=== PATIENT | male | born 1955 | race Caucasian/White ===

== ENCOUNTER 2017-10-22 09:21 | Emergency (ER) | payer BC ==
--- NOTE | 2017-10-22 10:24 | ED ---
Lower Extremity - HPI Summary HPI Summary: Patient is a 61-year-old male presenting to the ED with chief complaint of right anterior knee pain worse to the lateral side with a small amount of erythema. No swelling noted. No history of gout. Has had a significant recent travel history with long periods [place] as well as any plane. Denies any calf pain. He states he awoke with the pain which was worse on Saturday and endorses stiffness, throughout the day the knee began to feel somewhat better. He states on arrival the knee feels more improved than earlier this morning. He takes diclofenac daily for generalized aches and pains. He denies any known injury. He denies any fevers, sweats, chills and is otherwise well. He has seen Dr. Damon in the past for some back pain. - History of Current Complaint Chief Complaint: EDExtremityLower Stated Complaint: KNEE PAIN RT Time Seen by Provider: 10/22/17 09:32 Hx Obtained From: Patient Mechanism Of Injury: Unknown Onset of Pain: Days Onset/Duration: Days Severity Initially: Moderate Severity Currently: Moderate Pain Intensity: 5 Pain Scale Used: 0-10 Numeric Timing: Intermittent Location: Is Discrete @ - right anterior knee pain with erythema to the lateral side measuring 2cm Associated Signs And Symptoms: Positive: Swelling Aggravating Factor(s): Standing, Ambulation Alleviating Factor(s): Rest Able to Bear Weight: Yes - Risk Factors Gout Risk Factors: Age Over 40, Male DVT Risk Factors: Negative Septic Arthritis Risk Factor: Negative - Allergies/Home Medications Allergies/Adverse Reactions: Allergies Allergy/AdvReac Type Severity Reaction Status Date / Time codeine Allergy Constipatio Verified 10/22/17 09:29 n Home Medications: Home Medications Aspirin EC TAB* [Ecotrin EC Low Dose 81 MG*] 81 mg PO DAILY 10/22/17 [History Confirmed 10/22/17] Atorvastatin* [Lipitor*] 20 mg PO DAILY 10/22/17 [History Confirmed 10/22/17] Diclofenac Sodium EC TAB* [Voltaren EC TAB*] 75 mg PO BID PRN 10/22/17 [History Confirmed 10/22/17] Fluticasone NASAL SPRAY 50MCG* [Flonase NASAL SPRAY 50MCG*] 2 spray BOTH NARES DAILY PRN 10/22/17 [History Confirmed 10/22/17] LevoCETirizine TAB (NF) [Xyzal TAB (NF)] 5 mg PO DAILY 10/22/17 [History Confirmed 10/22/17] Potassium Chlor TAB* [Klor Con ER TAB*] 10 meq PO DAILY 10/22/17 [History Confirmed 10/22/17] Valsartan/HCTZ 320/12.5(NF) [Diovan Hct 320/12.5(NF)] 1 tab PO DAILY 10/22/17 [ History Confirmed 10/22/17] PMH/Surg Hx/FS Hx/Imm Hx Previously Healthy: Yes - Immunization History Hx Pertussis Vaccination: No Immunizations Up to Date: Unable to Obtain/Confirm Infectious Disease History: No Infectious Disease History: Denies: Traveled Outside the [place] in Last 30 Days - Social History Occupation: Employed Full-time Lives: With Family Alcohol Use: Weekly Hx Substance Use: No Substance Use Type: Reports: None Hx Tobacco Use: Yes Smoking Status (MU): Former Smoker Review of Systems Constitutional: Negative Negative: Fever, Chills, Fatigue, Skin Diaphoresis Cardiovascular: Negative Respiratory: Negative Positive: no symptoms reported, see HPI Positive: Arthralgia - right anterior knee pain with erythema to the lateral side measuring 2cm Positive: Other - erythema Neurological: Negative All Other Systems Reviewed And Are Negative: Yes Physical Exam Triage Information Reviewed: Yes Vital Signs On Initial Exam: Initial Vitals Temp Pulse Resp BP Pulse Ox 98.2 F 124 20 151/96 95 10/22/17 09:27 10/22/17 09:27 10/22/17 09:27 10/22/17 09:27 10/22/17 09:27 Vital Signs Reviewed: Yes Appearance: Positive: Well-Appearing, No Pain Distress, Well-Nourished Skin: Positive: Warm, Skin Color Reflects Adequate Perfusion, Other - right anterior knee pain with erythema to the lateral side measuring 2cm Head/Face: Positive: Normal Head/Face Inspection Neck: Positive: Supple Respiratory/Lung Sounds: Positive: Breath Sounds Present Cardiovascular: Positive: Normal Musculoskeletal: Positive: Pain @ - full flexion of the knee Neurological: Positive: Speech Normal Psychiatric: Positive: Affect/Mood Appropriate AVPU Assessment: Alert Diagnostics - Vital Signs Vital Signs Temp Pulse Resp BP Pulse Ox 10/22/17 09:27 98.2 F 124 20 151/96 95 - Laboratory Lab Statement: Any lab studies that have been ordered have been reviewed, and results considered in the medical decision making process. Lower Extremity Course/Dx - Course Course Of Treatment: patient is evaluated for knee pain. There is a small erythematous 2 cm in diameter areas to the right lateral side of the knee with some mild stiffness. He is able to ambulate well. IMPRESSION: MINIMAL OSTEOARTHRITIS. NO ACUTE OSSEOUS INJURY. IF SYMPTOMS PERSIST, RECOMMEND REPEAT. IMAGING. Discussed changing medication with patient. Advised may be Mobic is no - Diagnoses Differential Diagnosis/HQI/PQRI: Positive: Fracture (Closed), Gout, Osteomyelitis, Sprain, Strain, Tendonitis Provider Diagnoses: Osteomyelitis Discharge - Sign-Out/Discharge Documenting (check all that apply): Discharge/Admit/Transfer - Discharge Plan Condition: Stable Disposition: HOME Prescriptions: Meloxicam [Mobic] 7.5 mg PO BID #30 tablet predniSONE TAB* [Deltasone TAB*] 50 mg PO DAILY #5 tab MDD 1 Patient Education Materials: Osteoarthritis (ED) Referrals: Ambar Damon MD [Medical Doctor] - Anthony Mcdaniel MD [Primary Care Provider] - Additional Instructions: Please follow-up with Dr. Damon as needed If he develop any worsening redness, warmth, swelling or worsening pain to the area despite the medications, return to the ED immediately Mobic twice daily as for pain and inflammation If this medication improves your symptoms more than the diclofenac, you may talk to your doctor about switching this to be your daily medication Prednisone 50 mg once daily 5 days. Take this in the morning as it is a mild stimulant - Billing Disposition and Condition Condition: STABLE Disposition: HOME
--- NOTE | 2017-10-22 10:26 | RAD ---
HISTORY: Right knee pain COMPARISONS: None VIEWS: 4, Frontal, lateral, axial, and oblique views of the right knee FINDINGS: BONE DENSITY: Normal. BONES: There is no displaced fracture. There is a superior patellar enthesophyte. JOINTS: There is mild patellofemoral and lateral compartment osteophyte formation. There is no suprapatellar joint effusion or lipohemarthrosis. ALIGNMENT: There is no dislocation. SOFT TISSUES: Unremarkable. OTHER FINDINGS: None. IMPRESSION: MINIMAL OSTEOARTHRITIS. NO ACUTE OSSEOUS INJURY. IF SYMPTOMS PERSIST, RECOMMEND REPEAT IMAGING.
[2017-10-22 10:58] VITALS: BP 130/86
== END 2017-10-22 10:55 | disposition home or self-care (01) ==
LOC: ED 09:21
DX: M86.9 Osteomyelitis, unspecified (principal); M25.561 Pain in right knee; Z87.891 Personal history of nicotine dependence
CPT/HCPCS: 99282

== ENCOUNTER 2017-11-24 11:19 | Emergency (ER) | payer BC ==
[2017-11-24 12:09] LABS: ABS Basophils 0 10^3/ul (0-0.2); ABS Eosinophils 0 10^3/ul (0-0.6); ABS Lymphocytes 0.9 10^3/ul (1.0-4.8); ABS Monocytes 1.2 10^3/ul (0-0.8); ABS Neutrophils 6.3 10^3/ul (1.5-7.7); ABS Nucleated RBC 0 10^3/ul; Eosinophil % 0.2 % (0-6); Hematocrit 40 % (42-52); Hemoglobin 14.4 g/dl (14.0-18.0); Lymphocyte % 11.2 % (25-47); Mean Corpuscular HGB Conc 36 g/dl (31-36); Mean Corpuscular Hemoglobin 33 pg (27-31); Mean Corpuscular Volume 94 fL (80-94); Mean Platelet Volume 7.8 um3 (7.4-10.4); Nucleated Red Blood Cells % 0.1; Platelet Count 180 10^3/ul (150-450); Red Blood Count 4.31 10^6/ul (4.00-5.40); Red Cell Distribution Width 13 % (10.5-15); White Blood Count 8.4 10^3/ul (3.5-10.8)
[2017-11-24 12:19] LABS: EGFR Non-African American 56.3 (>60); Uric Acid 9.1 mg/dL (4.4-7.6)
--- NOTE | 2017-11-24 13:08 | RAD ---
INDICATION: Pain and swelling. COMPARISON: None TECHNIQUE: Duplex interrogation of the Lowerextremity was performed. FINDINGS: Deep veins: The common femoral, great saphenous, profunda femoris, proximal, mid, and distal deep femoral, popliteal, posterior tibial, and peroneal veins are patent. There is normal compressibility, augmentation, and phasic flow. Superficial veins: There are no findings of superficial thrombophlebitis. Popliteal fossa:There is no evidence of a popliteal cyst. Soft tissues:There are no soft tissue abnormalities. IMPRESSION: Normal examination. No evidence of deep venous thrombosis
--- NOTE | 2017-11-24 13:24 | RAD ---
INDICATION: Atraumatic right ankle pain COMPARISON: None TECHNIQUE: AP, lateral, and oblique views were obtained. FINDINGS: There is no acute bony change. The ankle mortise is intact. There are prominent Achilles and plantar calcaneal spurs. There is mild soft tissue swelling over the dorsum of the midfoot. IMPRESSION: HEEL SPURS. SOFT TISSUE SWELLING. NO ACUTE BONY FINDINGS.
--- NOTE | 2017-11-24 13:25 | RAD ---
INDICATION: Right foot pain COMPARISON: None TECHNIQUE: AP, lateral, and oblique views were obtained. FINDINGS: There is no acute fracture. There is minor osteoarthritis of the midfoot. There is an old avulsion fracture or ossicle about the tarsal navicular. There are heel spurs. There is soft tissue swelling of the dorsum of the midfoot in the medial aspect of the midfoot. IMPRESSION: NO ACUTE BONY FINDINGS. HEEL SPURS. SOFT TISSUE SWELLING MIDFOOT
--- NOTE | 2017-11-24 13:37 | ED ---
Mert Martell Elizabeth, scribed for Sneha Cooper MD on 11/24/17 at 1151 . Lower Extremity - HPI Summary HPI Summary: This patient is a 61 year old M presenting to [facility] with a chief complaint of right foot pain, erythema, and swelling since 3 days ago. The patient notes he spent long periods standing 3 days ago, 2 days ago he noticed cramping in his right foot, and last night the swelling and pain worsened. The patient rates the pain 9/10 in severity. Symptoms aggravated by movement and bearing weight. Symptoms alleviated by nothing. Patient reports difficulty walking without help. Patient denies calf pain or gout. The patient notes that he has been icing and elevating his right foot and taking Tylenol, but his symptoms have not alleviated. - History of Current Complaint Chief Complaint: EDExtremityLower Stated Complaint: RT FOOT INJURY Time Seen by Provider: 11/24/17 11:34 Hx Obtained From: Patient Onset of Pain: Days - 3 days Onset/Duration: Days - 3 days Severity Initially: Mild Severity Currently: Moderate Pain Intensity: 9 Pain Scale Used: 0-10 Numeric Timing: Constant Location: Is Discrete @ - right foot Associated Signs And Symptoms: Positive: Swelling, Redness, Other - right foot pain Aggravating Factor(s): Standing, Ambulation, Movement, Weight Bearing Alleviating Factor(s): Nothing - Allergies/Home Medications Allergies/Adverse Reactions: Allergies Allergy/AdvReac Type Severity Reaction Status Date / Time codeine Allergy Constipatio Verified 11/24/17 11:23 n Home Medications: Home Medications Magnesium Oxide [Magnesium] 1 tab PO DAILY 11/24/17 [History Confirmed 11/24/17] amLODIPine TAB* [Norvasc 5 mg TAB*] 5 mg PO DAILY 11/24/17 [History Confirmed ] PMH/Surg Hx/FS Hx/Imm Hx Respiratory History: Denies: Hx Chronic Obstructive Pulmonary Disease (COPD) Opthamlomology History: Denies: Hx Legally Blind EENT History: Denies: Hx Deafness Infectious Disease History: No Infectious Disease History: Denies: Traveled Outside the [place] in Last 30 Days - Family History Known Family History: Positive: None - patient denies relevant FHx - Social History Alcohol Use: Weekly Hx Substance Use: No Substance Use Type: Reports: None Hx Tobacco Use: Yes Smoking Status (MU): Former Smoker Review of Systems Negative: Epistaxis Negative: Vomiting Positive: Decreased ROM - in right foot/ankle, Edema - in right foot Positive: Other - erythema at top of right foot All Other Systems Reviewed And Are Negative: Yes Physical Exam - Summary Physical Exam Summary: Appearance: Well-appearing, Well-nourished Skin: Warm Eyes: Normal ENT: Normal Neck: Supple, nontender Respiratory: Clear to auscultation Cardiovascular: Regular rate, regular rhythm. Normal S1, S2. Abdomen: Soft, nontender Musculoskeletal: Tenderness to palpation over the right fourth flexor digitorum tendon, ROM of right foot restricted due to pain, right dorsum of foot swelling Neurological: Normal, A&Ox3 Psychiatric: Normal General: No acute distress Triage Information Reviewed: Yes Vital Signs On Initial Exam: Initial Vitals Temp Pulse Resp BP Pulse Ox 99.8 F 126 18 151/95 95 11/24/17 11:21 11/24/17 11:21 11/24/17 11:21 11/24/17 11:21 11/24/17 11:21 Vital Signs Reviewed: Yes Diagnostics - Vital Signs Vital Signs Temp Pulse Resp BP Pulse Ox 11/24/17 11:21 99.8 F 126 18 151/95 95 - Laboratory Lab Results: Lab Results 11/24/17 11/24/17 Range/Units 11:53 11:53 WBC 8.4 (3.5-10.8) 10^3/ul RBC 4.31 (4.00-5.40) 10^6/ul Hgb 14.4 (14.0-18.0) g/dl Hct 40 L (42-52) % MCV 94 (80-94) fL MCH 33 H (27-31) pg MCHC 36 (31-36) g/dl RDW 13 (10.5-15) % Plt Count 180 (150-450) 10^3/ul MPV 7.8 (7.4-10.4) um3 Neut % (Auto) 74.5 (38-83) % Lymph % (Auto) 11.2 L (25-47) % Darke % (Auto) 13.8 H (0-7) % Eos % (Auto) 0.2 (0-6) % Baso % (Auto) 0.3 (0-2) % Absolute Neuts (auto) 6.3 (1.5-7.7) 10^3/ul Absolute Lymphs (auto) 0.9 L (1.0-4.8) 10^3/ul Absolute Monos (auto) 1.2 H (0-0.8) 10^3/ul Absolute Eos (auto) 0 (0-0.6) 10^3/ul Absolute Basos (auto) 0 (0-0.2) 10^3/ul Absolute Nucleated RBC 0 10^3/ul Nucleated RBC % 0.1 Sodium 135 (135-145) mmol/L Potassium 3.7 (3.5-5.0) mmol/L Chloride 98 L (101-111) mmol/L Carbon Dioxide 26 (22-32) mmol/L Anion Gap 11 (2-11) mmol/L BUN 16 (6-24) mg/dL Creatinine 1.30 H (0.67-1.17) mg/dL Est GFR ( Amer) 68.1 (>60) Est GFR (Non-Af Amer) 56.3 (>60) BUN/Creatinine Ratio 12.3 (8-20) Glucose 135 H (70-100) mg/dL Uric Acid 9.1 H (4.4-7.6) mg/dL Calcium 10.3 (8.6-10.3) mg/dL Total Bilirubin 1.80 H (0.2-1.0) mg/dL AST 20 (13-39) U/L ALT 20 (7-52) U/L Alkaline Phosphatase 57 (34-104) U/L Total Protein 8.4 (6.4-8.9) g/dL Albumin 4.4 (3.2-5.2) g/dL Globulin 4.0 (2-4) g/dL Albumin/Globulin Ratio 1.1 (1-3) Result Diagrams: 11/24/17 11:53 11/24/17 11:53 Lab Statement: Any lab studies that have been ordered have been reviewed, and results considered in the medical decision making process. - Additional Comments Diagnostic Additional Comments: VL Lower Ext Veins Right Interpreted by radiologist. IMPRESSION: Normal examination. No evidence of deep venous thrombosis Dr. Cooper has reviewed this report. Re-Evaluation - Re-Evaluation 1st re-eval Re-Evaluation Time: 13:15 Change: Improved Comment: Discussed imaging results with patient. Lower Extremity Course/Dx - Course Assessment/Plan: RLE pain- LE doppler neg for DVT or fluid collection, XR of right foot and ankle neg for fx,. URIC ACID is 9.1- pt has atypical gout, Prednisone 20mg PO qd x 5 days prescribed, Indomethacin 50mg TID for acute attack for future, f/u with nephrology - evaluate for overexcretor vs undersecretor of uric acid - Diagnoses Provider Diagnoses: Gout Discharge - Sign-Out/Discharge Documenting (check all that apply): Discharge/Admit/Transfer - Discharge Plan Condition: Stable Disposition: HOME Discharge Disposition Comment: discharge home Prescriptions: predniSONE TAB* [Deltasone 10 MG TAB*] 10 mg PO DAILY 5 Days #5 tab Patient Education Materials: Gout (ED) Referrals: Anthony Mcdaniel MD [Primary Care Provider] - Additional Instructions: Return to the emergency department with any new or worsening symptoms. - Billing Disposition and Condition Condition: STABLE Disposition: Home The documentation as recorded by the Mert izquierdo Elizabeth accurately reflects the service I personally performed and the decisions made by , Sneha Cooper MD.
[2017-11-24 14:07] VITALS: BP 144/89
== END 2017-11-24 14:06 | disposition home or self-care (01) ==
LOC: ED 11:19
DX: M10.9 Gout, unspecified (principal); M77.31 Calcaneal spur, right foot; Z87.891 Personal history of nicotine dependence; Z88.5 Allergy status to narcotic agent
CPT/HCPCS: 36415; 80053; 84550; 85025; 99282

== ENCOUNTER 2018-01-08 17:58 | Emergency (ER) | payer BC ==
--- OUTSIDE RECORDS SUMMARY | 2018-01-08 18:03 | XMS REPORT ---
:1955 External Reference #:[id number] Author Organization Bright Elizabeth M.D., [facility] Address [address] [place] [address] Phone [phone] Care Team Providers Name Role Phone Diana HALL, Niko Primary Care Physician Unavailable Payers Type Date Identification Numbers Payment Provider Subscriber Health Maintenance Policy Number: BC/BS [place] Ppo Daniel Kate Wavii Organization (HMO) [id number] PayID: [id number] [address] [address] [place] [address] Problems Description No Information Family History Date Family Member(s) Problem(s) Comments Father Cancer Prostate Father Heart Disease Mother Cataract Social History Type Date Description Comments ETOH Use Occasionally consumes alcohol Smoking Patient is a former smoker Allergies, Adverse Reactions, Alerts Date Description Reaction Status Severity Comments 01/02/2018 NKDA active Medications Medication Date Status Form Strength Qnty SIG Indications Ordering Provider Allopurinol / Active Tablets 300mg Stevanokeeley 0000 MD, Radomir Atorvastatin / Active Tablets 20mg Stevanovic Calcium 0000 MD, Radomir Fluticasone / Active Suspension 50mcg/Act Stevanovic Propionate 0000 MD, Radomir Potassium Chloride / Active Tablets ER 10Meq Stevanovic ER 0000 MD, Radomir Sildenafil Citrate / Active Tablets 100mg Unknown 0000 Valsartan-Hydrochl / Active Tablets 320-12.5mg Stevanovic orothiazide 0000 MD, Radomir Amlodipine / Active Tablets 5mg Stevanovic Besylate 0000 MD, Radomir Levocetirizine / Active Tablets 5mg Stevanovic Dihydrochloride 0000 MD, Radomir Vital Signs Date Vital Result Comment 01/02/2018 Intraocular Pressure Right Eye 19 mmHg Intraocular Pressure Left Eye 18 mmHg Results Description No Information Procedures Date CPT Code Description Status 01/02/2018 06476 Refraction Completed 01/02/2018 74987 Eye Exam New Comprehensive Completed 12/27/2008 58462 Eye Exam New Comprehensive Completed 01/29/2008 27130 Ophthalmoscopy Subsequent Completed 01/29/2008 33559 Refraction Completed 01/29/2008 93401 Eye Exam Est Comprehensive Completed 08/16/2006 70487 Ophthalmoscopy Initial Completed 08/16/2006 60849 Refraction Completed 08/16/2006 44182 Eye Exam New Comprehensive Completed Plan of Care 01/02/2018 - Bright Elizabeth M.D.H25.093 Other age-related incipient cataract, bilateralFollow up:1 yr
--- NOTE | 2018-01-08 18:11 | UC ---
Epistaxis Nasal HPI - HPI Summary HPI Summary: This patient is a 62 year old M presenting to [facility] care with a chief complaint of sinus pressure that began a week and a half ago. The patient rates the pain 2/10 in severity. Symptoms aggravated by nothing. Symptoms alleviated by nothing. Patient reports fever (max 101 F), SOB, yellow nasal discharge, neck pain, and back pain. Patient denies dysuria, cough, chest congestion, and sore throat. Patient reports that his symptoms feel similar to his history of sinus infections. - History of Current Complaint Stated Complaint: SINUS COMPLAINT Time Seen by Provider: 01/08/18 18:02 Hx Obtained From: Patient Onset/Duration: Sudden Onset, Lasting Weeks, Still Present Timing: Constant Severity Initially: Mild Severity Currently: Mild Pain Intensity: 2 Pain Scale Used: 0-10 Numeric Aggravating Factor(s): Nothing Alleviating Factor(s): Nothing Associated Signs And Symptoms: Positive: Sinus Pain, Nasal Discharge - Allergies/Home Medications Allergies/Adverse Reactions: Allergies Allergy/AdvReac Type Severity Reaction Status Date / Time codeine Allergy Constipatio Verified 01/08/18 18:12 n Home Medications: Home Medications Allopurinol TAB* [Zyloprim 100 MG TAB*] 1 tab PO DAILY 01/08/18 [History Confirmed 01/08/18] PMH/Surg Hx/FS Hx/Imm Hx - Additional Past Medical History Additional PMH: ENT PMHx Sinus infections Previously Healthy: No Respiratory History: Other Other Respiratory History: Negative COPD - Family History Known Family History: Positive: None - patient denies relevant FHx - Social History Occupation: Employed Full-time Lives: With Family Alcohol Use: Weekly Substance Use Type: None Smoking Status (MU): Former Smoker Review of Systems Constitutional: Fever ENT: Nasal Discharge, Sinus Pain/Tenderness, Other - Negative sore throat Respiratory: Shortness Of Breath, Other - Negative cough and chest congestion Genitourinary: Other - Negative dysuria Musculoskeletal: Other: - Positive neck pain and back pain All Other Systems Reviewed And Are Negative: Yes Physical Exam - Summary Physical Exam Summary: General: well-appearing, no pain distress Skin: warm, color reflects adequate perfusion, dry Head: normal Eyes: EOMI, LIU ENT: normal Neck: supple, nontender Respiratory: CTA, breath sounds present Cardiovascular: tachycardic Abdomen: soft, nontender Bowel: present Musculoskeletal: normal, strength/ROM intact Neurological: sensory/motor intact, A&O x3 Psychological: affect/mood appropriate Triage Information Reviewed: Yes Vital Signs Reviewed: Yes Diagnostics - EKG Cardiac Rate: Tachycardia - 123 BPM Cardiac Rhythm: Sinus: Normal - Taken at 1821. Ectopy: None ST Segment: Normal Re-Evaluation - Re-Evaluation First Eval Re-Evaluation Time: 18:50 Change: Improved Comment: Discussed plan of care and results with pt Epistaxis Nasal Course/Dx - Course Course Of Treatment: DISCUSSED URINE RESULTS. PATIENT DOES NOT HAVE JAUNDICE APPEARANCE. DISCUSSED THE FEVER, LOW BLOOD PRESSURE AND TACHYCARDIA BEING SIGNS OF SEPSIS. THE PATIENT DOES NOT APPEAR SEPTIC AT THIS TIME. DISCUSSED GETTING LAB WORK TO INCLUDE CBC AND CMP (WITH TOTAL BILIRUBIN). THE PATIENT DECLINED AT THIS TIME BUT, WILL GET REEVAL IF THERE IS ANY SIGN OF JAUNDICE OR HE FEELS MORE ILL. ALSO DISCUSSED THE CORRECT DOSING OF ACETAMINOPHEN. I RECOMMENDED EVALUATION IN THE EMERGENCY DEPARTMENT WITH ANY WORSENING OF HIS CONDITION. - Differential Dx/Diagnosis Provider Diagnoses: SINUSITIS. FEVER. TACHYCARDIA Discharge - Sign-Out/Discharge Documenting (check all that apply): Patient Departure - Discharge Plan Condition: Stable Disposition: HOME Prescriptions: Moxifloxacin TAB(NF) [Avelox TAB (NF)] 400 mg PO DAILY #14 tab Patient Education Materials: Sinusitis (ED), Fever in Adults (ED), Tachycardia (ED) Referrals: Anthony Mcdaniel MD [Primary Care Provider] - Additional Instructions: FOLLOW UP WITH YOUR DOCTOR. MIGUEL TOMORROW TO ARRANGE FOLLOW UP. YOU HAD SOME BILIRUBIN IN YOUR URINE. GET THIS RECHECKED WITH YOUR DOCTOR. GET RECHECKED FOR ANY WORSENING OF YOUR CONDITION; PAIN, FEVER, YOU FEEL ILL OR QUESTIONS OR CONCERNS. - Billing Disposition and Condition Condition: STABLE Disposition: Home Attestation Statement Scribe Attestation: This is felecia Bradford documenting for attending Shahbaz Durbin MD. User Type: Provider with Scribe Provider Attestation: The documentation recorded by the scribe accurately reflects the service I personally performed and the decisions made by me.
[2018-01-08] MEDS ORDERED: Acetaminophen TAB* 325 MG PO ONE (18:16)
[2018-01-08 18:46] VITALS: BP 91/66
== END 2018-01-08 19:05 | disposition home or self-care (01) ==
LOC: UCEAST 17:58
DX: J32.9 Chronic sinusitis, unspecified (principal); R50.9 Fever, unspecified; R00.0 Tachycardia, unspecified; Z88.5 Allergy status to narcotic agent; Z87.891 Personal history of nicotine dependence
CPT/HCPCS: 81003; 93005; 99212; A9270-GY; G0463

== ENCOUNTER 2018-02-02 10:04 | Emergency (ER) | payer BC ==
[2018-02-02 11:11] LABS: Hematocrit 36 % (42-52); Hemoglobin 12.3 g/dl (14.0-18.0); Mean Corpuscular HGB Conc 34 g/dl (31-36); Mean Corpuscular Hemoglobin 31 pg (27-31); Mean Corpuscular Volume 91 fL (80-94); Mean Platelet Volume 7.1 um3 (7.4-10.4); Platelet Count 268 10^3/ul (150-450); Red Blood Count 3.99 10^6/ul (4.00-5.40); Red Cell Distribution Width 14 % (10.5-15); White Blood Count 14.3 10^3/ul (3.5-10.8)
--- NOTE | 2018-02-02 11:11 | ED ---
Skin Complaint - HPI Summary HPI Summary: A 62 y/o male presents to ED c/o diffuse body erythema and edema. Additionally c /o diffuse rash. Currently, the patient is in no pain distress, however his right arm feels tight. He stated that his edema and erythema feels like a "sun burn". In the ED room, the patient has a pulse of 86 BPM, O2 saturation of 97% and blood pressure of 119/67. According to the patient, he initially started out with diffuse itching approximately 2 weeks ago before noticing the apparent swelling diffusely throughout his body. He noted that he is in no pain, but the erythema and edema has not subsided. He feels swelling in his face, ankles, legs , arms, abdomen and back. Denies any SOB, sore throat, abdominal pain and hematuria. He even cut off several of his medications to alleviate the symptoms , as he thought they were side effects, but nothing has helped. He noted that since last time he was in the [facility] ED, he has gained substantial weight (greater than 10 lbs). He stated that he does feel the itching throughout his body, but it is not intense and it easy not to scratch, however there was a night where it kept him up all night. Patient is currently on several medications. - History of Current Complaint Chief Complaint: EDRashSkinAbscess Stated Complaint: SWELLING Hx Obtained From: Patient, Family/Analog Design Engineer Onset/Duration: Started Weeks Ago, Still Present Skin Exposure Onset/Duration: Weeks Ago Timing: Constant Current Severity: None Pain Intensity: 0 Pain Scale Used: 0-10 Numeric Skin Location: Diffuse Character: Swelling, Redness Aggravating Symptom(s): Nothing Alleviating Symptom(s): Nothing Associated Signs & Symptoms: Rash - Allergy/Home Medications Allergies/Adverse Reactions: Allergies Allergy/AdvReac Type Severity Reaction Status Date / Time codeine Allergy Constipatio Verified 01/08/18 18:12 n PMH/Surg Hx/FS Hx/Imm Hx Endocrine/Hematology History: Denies: Hx Diabetes Cardiovascular History: Reports: Hx Hypertension Respiratory History: Denies: Hx Asthma, Hx Chronic Obstructive Pulmonary Disease (COPD) Sensory History: Denies: Hx Legally Blind, Hx Deafness Opthamlomology History: Denies: Hx Legally Blind - Surgical History Surgery Procedure, Year, and Place: As per patient, no prior surgeries noted. Infectious Disease History: No Infectious Disease History: Denies: Traveled Outside the [place] in Last 30 Days - Family History Known Family History: Positive: Hypertension, Other - Father had triple bypass and pacemaker. Negative: Diabetes - Social History Alcohol Use: Weekly Hx Substance Use: No Substance Use Type: Reports: None Hx Tobacco Use: Yes Smoking Status (MU): Former Smoker Review of Systems Negative: Fever Negative: Sore Throat Negative: Shortness Of Breath Negative: Abdominal Pain Negative: hematuria Positive: Edema Skin: Other - POSITIVE: Erythema Positive: Rash All Other Systems Reviewed And Are Negative: Yes Physical Exam - Summary Physical Exam Summary: General: well-appearing, no pain distress Skin: Diffuse erythematous blanching rash in arms, legs, chest, abdomen and face , Head: normal Eyes: EOMI, LIU ENT: normal, oral pharynx is open Neck: supple, nontender Respiratory: CTA, breath sounds present, lungs are clear Cardiovascular: RRR Abdomen: soft, nontender Bowel: present Musculoskeletal: strength/ROM intact, diffuse edema in legs and arm Neurological: sensory/motor intact, A&O x3 Psychological: affect/mood appropriate Triage Information Reviewed: Yes Vital Signs On Initial Exam: Initial Vitals Temp Pulse Resp BP Pulse Ox 98.9 F 86 18 115/75 98 02/02/18 10:07 02/02/18 10:07 02/02/18 10:07 02/02/18 10:07 02/02/18 10:07 Vital Signs Reviewed: Yes Diagnostics - Vital Signs Vital Signs Temp Pulse Resp BP Pulse Ox 02/02/18 10:26 85 98 02/02/18 10:24 87 119/67 96 02/02/18 10:07 98.9 F 86 18 115/75 98 - Laboratory Result Diagrams: 02/02/18 10:52 02/02/18 10:52 Lab Statement: Any lab studies that have been ordered have been reviewed, and results considered in the medical decision making process. - Radiology CXR Radiology Interpretation Completed By: Radiologist - In the correct clinical setting chest x-ray findings could be compatible with mild cardiogenic vascular congestion. ED physician reviewed this radiology report. - EKG 1155 Cardiac Rate: NL - 82 BPM EKG Rhythm: Sinus Rhythm Ectopy: None EKG Interpretation: Flipped T's in inferior leads. - Additional Comments Diagnostic Additional Comments: TRANSTHORACIC ECHOCARDIOGRAM: Conclusions: The left ventricular chamber size is normal. Mild concentric left ventricular hypertrophy is observed. There is normal left ventricular systolic function. The estimated ejection fraction is 55-60%. Global left ventricular wall motion and contractility are within normal limits. The left atrial chamber size is normal. The right ventricular cavity size is normal. The right ventricular global systolic function is low normal. No significant valvular abnormalities noted No pulmonary hypertension is noted. Definity was used to optimize study. ED PHYSICIAN REVIEWED THIS RADIOLOGY REPORT. Course/Dx - Course Course Of Treatment: Medications reviewed. Allergies noted. HOSPITALIST, DR SORIANO, AND DERMATOLGY, DR RAMIREZ, CONSULTED. BOTH SAW THE PATIENT IN THE ED. THE PLAN IS STOP THE ALLOPURINOL, TREAT WITH PREDNISONE TAPER, RECHECK LABS ON 02/07/18, F/U WITH PMD AND RETURN TO THE ED IF WORSE. THIS WAS ALL DISCUSSED WITH THE PATIENT AND HIS . - Diagnoses Provider Diagnoses: DRESS syndrome - Physician Notifications Discussed Care Of Patient With: Dasha Soriano Time Discussed With Above Provider: 10:58 Instructed by Provider To: Other - Dr. Soriano will consult with patient. Consult at [address] Stuart Franco who recommends ECHO. Consult with Dr. Soriano at 1254 who will consult with patient again. Discharge - Sign-Out/Discharge Documenting (check all that apply): Patient Departure - DISCHARGE - Discharge Plan Condition: Stable Disposition: HOME Prescriptions: predniSONE TAB* [Deltasone 10 MG TAB*] 10 mg PO SEE INSTRUCTIONS #40 tab predniSONE TAB* [Deltasone 10 MG TAB*] 10 mg PO DAILY #40 tab Meds/Orders/Equipment: CBC Auto Diff Time Frame: 02/07/18, Location: None Selected Comprehensive Metabolic Panel [CHEM] Time Frame: 02/07/18, Location: None Selected C Reactive Protein [CHEM] Time Frame: 02/07/18, Location: None Selected Patient Education Materials: Acute Rash (ED), General Allergic Reaction (ED) Referrals: Kay Ramirez [Medical Doctor] - Anthony Mcdaniel MD [Primary Care Provider] - Additional Instructions: FOLLOW UP WITH YOUR PRIMARY CARE DOCTOR AND DERMATOLOGY FOR YOUR DRESS SYNDROME. GET RECHECKED FOR ANY WORSENING OF YOUR CONDITION OR QUESTIONS OR CONCERNS. - Billing Disposition and Condition Condition: STABLE Disposition: Home - Attestation Statements Document Initiated by Scribe: Yes Documenting Scribe: Thomas Hill Provider For Whom Scribe is Documenting (Include Credential): Shahbaz Durbin MD Scribe Attestation: I, Thomas Hill, scribed for Shahbaz Durbin MD on 02/02/18 at 1815. Scribe Documentation Reviewed: Yes Provider Attestation: The documentation as recorded by the [email or web address] accurately reflects the service I personally performed and the decisions made by me, Shahbaz Durbin MD
[2018-02-02 11:19] LABS: INR 0.96 (0.77-1.02)
[2018-02-02 11:28] LABS: EGFR Non-African American 60.4 (>60); Uric Acid 4.9 mg/dL (4.4-7.6)
[2018-02-02 11:37] LABS: ABS Basophils 0 10^3/ul (0-0.2); ABS Eosinophils 2.9 10^3/ul (0-0.6); ABS Lymphocytes 0.9 10^3/ul (1.0-4.8); ABS Monocytes 1.6 10^3/ul (0-0.8); ABS Neutrophils 8.8 10^3/ul (1.5-7.7); ABS Nucleated RBC 0 10^3/ul; Eosinophil % 20.1 % (0-6); Lymphocyte % 6.4 % (25-47); Nucleated Red Blood Cells % 0.1
[2018-02-02] MEDS ORDERED: Perflutren Lipid Microsphere* 3 ML VIAL ONE (11:46)
--- NOTE | 2018-02-02 12:27 | RAD ---
INDICATION: Edema COMPARISON: None. TECHNIQUE: Single AP portable view of the chest was obtained. FINDINGS: Image quality is compromised due to the relative inferiority of a portable chest x-ray. The heart appears mildly enlarged. The pulmonary vasculature is mildly engorged and indistinct. Lungs are otherwise grossly clear. Visualized bones are normal for the patient's age. IMPRESSION: In the correct clinical setting chest x-ray findings could be compatible with mild cardiogenic vascular congestion.
[2018-02-02 12:50] LABS: Urine Appearance Clear; Urine Blood Negative (Negative); Urine Color Straw; Urine Ketones Negative (Negative); Urine Protein Negative (Negative); Urine Specific Gravity 1.005 (1.010-1.030); Urine Urobilinogen Negative (Negative)
--- NOTE | 2018-02-02 12:56 | ECHO ---
Patient: RJ BALLESTEROS [facility] Rec#: [id number] : 1955 Date: 02/02/2018 Age: 62y Height: 172.7 cm / 68.0 in Weight: 100 kg / 220.4 lbs Sex: M BSA: 2.13 Room#: -16 Admit Date#: 02/02/2018 Type: Inpatient Referring: Shahbaz Durbin MD Reading: Maxx Franco DO Summer Camp Counselor: Arti Fox RDCS CC: Anthony Mcdaniel MD Transthoracic Echocardiogram Indication: Edema BP: 115/72 HR: 89 Rhythm: NSR Findings History: Former smoker Technical Comments: The study is technically limited due to patient body habitus. Completed at 1230. Left Ventricle: The left ventricular chamber size is normal. Mild concentric left ventricular hypertrophy is observed. Global left ventricular wall motion and contractility are within normal limits. There is normal left ventricular systolic function. The estimated ejection fraction is 55-60%. Normal left ventricular diastolic filling is observed. Left Atrium: The left atrial chamber size is normal. Right Ventricle: The right ventricular cavity size is normal. The right ventricular global systolic function is low normal. Right Atrium: The right atrium is mildly dilated. Aortic Valve: The aortic valve is trileaflet. The aortic valve leaflets are mildly thickened. There is no evidence of aortic regurgitation. There is no evidence of aortic stenosis. Mitral Valve: The mitral valve leaflets are mildly thickened. There is a trace of mitral regurgitation. There is no evidence of mitral stenosis. Tricuspid Valve: The tricuspid valve leaflets are normal. There is trace tricuspid regurgitation. No pulmonary hypertension is noted. There is no tricuspid stenosis. Pulmonic Valve: The pulmonic valve appears normal. There is a trace pulmonic regurgitation. There is no pulmonic stenosis. Pericardium: There is no significant pericardial effusion. Aorta: There is no dilatation of the ascending aorta. There is no dilatation of the aortic arch. The aortic root is normal in size. Pulmonary Artery: The main pulmonary artery is not well visualized. Venous: The inferior vena cava appears normal in size. There is a greater than 50% respiratory change in the inferior vena cava dimension. Contrast: Definity was used to optimize study. 2 mL of diluted Definity were utilized. Intravenous contrast was used to enhance endocardial border definition. Conclusions The left ventricular chamber size is normal. Mild concentric left ventricular hypertrophy is observed. There is normal left ventricular systolic function. The estimated ejection fraction is 55-60%. Global left ventricular wall motion and contractility are within normal limits. The left atrial chamber size is normal. The right ventricular cavity size is normal. The right ventricular global systolic function is low normal. No significant valvular abnormalities noted No pulmonary hypertension is noted. Definity was used to optimize study. None prior for comparison at time of interpretation Measurements Name Value Normal Range RVIDd (AP) 2D 3.5 cm (0.9 - 2.6) RAd ISD 4CH 5 cm (3.4 - 4.9) RA (A4C)W 5 cm (2.9 - 4.6) IVSd (2D) 1.1 cm (0.6 - 1) LVPWd (2D) 1.1 cm (0.6 - 1) LVIDd (2D) 4.7 cm (3.6 - 5.4) LVIDs (2D) 3.2 cm - LV FS (2D) 31 % (25 - 45) Aortic Annulus 2.2 cm (1.4 - 2.6) Ao root diameter (2D) 3.3 cm (2.1 - 3.5) Ascending Ao 3.1 cm (2.1 - 3.4) Aortic arch 2.3 cm (1.8 - 3.4) LA dimension (AP) 2D 3.3 cm (2.3 - 3.8) LAd ISD 4CH 5.4 cm (2.9 - 5.3) LA ISD 4CH W 4.6 cm (2.5 - 4.5) Name Value Normal Range LA ESV BP (A/L) index 16 ml/m2 - Name Value Normal Range MV E-wave Vmax 0.7 m/sec - MV deceleration time 208 msec - MV A-wave Vmax 0.6 m/sec - MV E:A ratio 1.2 ratio - LV septal e' Vmax 0.08 m/sec - LV lateral e' Vmax 0.08 m/sec - LV E:e' septal ratio 8.75 ratio - LV E:e' lateral ratio 8.75 ratio - Name Value Normal Range AV Vmax 1.5 m/sec - AV VTI 24.3 cm - AV peak gradient 9 mmHg - AV mean gradient 5 mmHg - LVOT Vmax 1.1 m/sec - LVOT VTI 17.5 cm - LVOT peak gradient 5 mmHg - LVOT mean gradient 3 mmHg - KENNEDY Vmax 1 m/sec - Name Value Normal Range TR Vmax 2 m/sec - TR peak gradient 16 mmHg - RAP 3 mmHg - RVSP 19 mmHg - IVC diameter 1.4 cm - Name Value Normal Range PV Vmax 1.33 m/sec - PV peak gradient 7 mmHg -
[2018-02-02] MEDS ORDERED: NS 0.9% 1000 ML* 1,000 ML IV ONE (13:31)
[2018-02-02 14:09] VITALS: BP 116/67
[2018-02-02] MEDS ORDERED: predniSONE TAB* 50 MG PO ONE ×2 (14:37)
[2018-02-02] MEDS ORDERED: predniSONE TAB* 20 MG ONE (14:52)
[2018-02-02] MEDS ORDERED: predniSONE TAB* 10 MG ONE (14:52)
[2018-02-02] MEDS ORDERED: predniSONE TAB* 20 MG PO ONE (14:54)
[2018-02-02] MEDS ORDERED: predniSONE TAB* 10 MG PO ONE (14:54)
--- NOTE | 2018-02-02 21:18 | CONS ---
CC: Dr. Mcdaniel * CONSULTATION REPORT: DATE OF CONSULTATION: 02/02/18 PRIMARY CARE PROVIDER: Dr. Mcdaniel. CHIEF COMPLAINT: Diffuse skin swelling and erythema. HISTORY OF PRESENT ILLNESS: Mr. Frederick is a 62-year-old male who has a history of hypertension and gout, and was started on both amlodipine and allopurinol relatively recently. The patient was having a gout flare in early December. He was on prednisone for this. He ultimately started allopurinol in mid December. The patient had been doing okay up until early January when he was diagnosed with sepsis secondary to a sinusitis. The patient recovered fine from this. He , approximately over the last 2 to 3 weeks, has noticed increased lower extremity swelling. Legs will be swollen during the day; and, as they are up overnight, in the morning the swelling will be gone. He also began itching diffusely approximately 2 weeks ago. Approximately 3 to 4 days ago, he noticed that he had a rash on his arms, chest, back, face, and legs. The patient ultimately presented to the emergency room on 02/02/18 for evaluation of diffuse edema and erythema. The patient states that otherwise he is feeling well. There is no tenderness to the skin. There is no oral mucosal involvement. He has not felt feverish; however, he did feel slightly chilled over the last couple of days as if he had had a sunburn. The patient was out in the sun mowing his yard yesterday, but did apply sunscreen to his arms and face. Prior to that he was in the sun approximately 1 week ago; however, he did not have any evidence of sunburn immediately after being in the sun. PAST MEDICAL HISTORY: 1. Gout. 2. Hypertension. 3. Hyperlipidemia. MEDICATIONS: 1. Valsartan/hydrochlorothiazide. 2. Magnesium oxide 1 tab p.o. daily. 3. Levocetirizine 5 mg p.o. daily. 4. Indomethacin 50 mg p.o. t.i.d. p.r.n. pain. 5. Flonase 2 squirts both nostrils daily p.r.n. allergies. 6. Lipitor 20 mg p.o. daily. 7. Aspirin 81 mg p.o. daily. 8. Allopurinol 300 mg p.o. daily. ALLERGIES: CODEINE. FAMILY HISTORY: Not reviewed. 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 He is . He is a former smoker. REVIEW OF SYSTEMS: As per HPI and otherwise negative. PHYSICAL EXAM: Blood pressure 116/67, pulse 91, respirations 18, temp 98.9, O2 sat 95% on room air. General: The patient is a well-developed middle-aged male , seen sitting in the stretcher, appearing to be in no acute distress, but diffusely erythematous. HEENT: Pupils are equal and round. Extraocular muscles are intact. Oropharynx is clear. Oral mucosa is moist. There are no ulcerations noted. There is no submandibular, cervical, or supraclavicular adenopathy. Cardiac: Normal S1, S2. Regular rate and rhythm. I do not appreciate any murmurs. There is 1+ bilateral lower extremity pitting edema and diffuse subcutaneous edema. Pulmonary: Lungs are clear to auscultation bilaterally. Abdomen: Bowel sounds are present. Abdomen is soft, nontender, nondistended. Musculoskeletal: There is no cyanosis, clubbing of the digits. There is full active range of motion of all 4 extremities. Skin is warm, it is diffusely erythematous. There is what appears to be scaling noted on the arms and slightly on the legs as well. The patient's face is almost confluently bright red. The skin diffusely feels edematous. Neuro: Cranial nerves II through XII are grossly intact. Sensation is intact to light touch throughout. Strength is 5/5 and symmetric in both upper and lower extremities bilaterally. Psych: The patient is alert. He is oriented x3. Affect appears appropriate. LABORATORY DATA: WBC 14.3, hemoglobin 12.3, hematocrit 36, platelets 268,000, eosinophils 20.1%. INR 0.96. Sodium 129, potassium 4.1, chloride 95, CO2 of 23 , BUN 21, creatinine 1.22, glucose 109, lactic acid 1.7, uric acid 4.9, calcium 9.3, magnesium 1.7, bilirubin 0.6, AST 14, ALT 15, alk phos 79. CRP 39.67, BNP 60, albumin 3.7, lipase 68, TSH 1.59. Urinalysis reveals a specific gravity of 1.005 and otherwise negative. IMAGING: Chest x-ray: In the correct clinical setting, chest x-ray findings could be compatible with mild cardiogenic vascular congestion. EKG reveals normal sinus rhythm with T-wave inversions in the inferior leads. Echocardiogram reveals normal LV chamber size. Mild concentric LVH is observed. Estimated EF is 55% to 60%. Global left ventricular wall motion and contractility are within normal limits. Right ventricular cavity size is normal. Right ventricular global systolic function is low normal. No significant valvular abnormalities are noted. No pulmonary hypertension is noted. ASSESSMENT AND PLAN: Mr. Frederick is a 62-year-old male with a history of hypertension and gout, who was recently started on 2 new medications, amlodipine and allopurinol within the last couple of months, who presents to the emergency room with diffuse edema and erythema. 1. Diffuse skin rash and edema. My suspicion is that this is secondary to a drug reaction from allopurinol. This is the most likely causative agent. The patient started this in mid December fitting an approximately 8-week window for the onset of exfoliative dermatitis or DRESS syndrome. There is no evidence of Gonzalez-Tomy syndrome. Dr. Wills has kindly come into the emergency room and evaluated the patient and agrees that DRESS syndrome is a likelihood. She has recommended initiating prednisone 50 mg p.o. daily x2 days, then 40 mg x4 days, then 30 mg x4 days, then 20 mg x4 days, and then 10 mg x4 days. The patient has Dr. Wills's phone number and will contact her if there are any new issues. The patient should have followup CBC with differential, CMP, CRP and uric acid level obtained this coming Saturday. The patient has been explained that it is imperative that he not take allopurinol any further. 2. Hypertension. The blood pressure is under very good control in the emergency room on his usual dose of valsartan/hydrochlorothiazide. He will continue on this at home. He stopped the amlodipine approximately 1 week ago and is recommended that he stay off this medication. 3. Hyperlipidemia. Continue Lipitor. 4. Allergic rhinitis. Continue Xyzal and Flonase. TIME SPENT: Fifty five minutes were spent on the consultation of this patient. [id number] #: [id number] MTDD
== END 2018-02-02 15:02 | disposition home or self-care (01) ==
LOC: ED 10:04
DX: L27.0 Generalized skin eruption due to drugs and medicaments taken internally (principal); T88.7XXA Unspecified adverse effect of drug or medicament, initial encounter; Y92.9 Unspecified place or not applicable; I10 Essential (primary) hypertension; Z87.891 Personal history of nicotine dependence
CPT/HCPCS: 36415; 71045; 80053; 81003; 83605; 83690; 83735; 83880; 84443; 84550; 85025; 85610; 85730; 86140; 93005; 93306; 96360; 99283; C8929; J7512